=== PATIENT | male | born 1940 | race African-American/Black ===

== ENCOUNTER 2022-09-13 18:40 | Emergency (ER) | payer MEDICAID, OTHER ==
[~2022-09-13] VITALS: Ht 167.6 cm; Wt 87.0 kg
[~2022-09-13 18:40] MED LIST: ALLO100T MT; ATOR40TA70 MT; CHOL400D7 PO; LEVO250T74 PO; LOSA100T32 MT; MULT-1204 MT; TAMS-11 PO
[2022-09-13 19:49] LABS: BASOPHILS % 0.7 % (0.0-2.0); EOSINOPHILS % 1.9 % (0.0-5.0); HEMATOCRIT. 36.7 % (42.0-52.0); HEMOGLOBIN. 11.7 g/dL (14.0-18.0); LYMPHOCYTES % 19.5 % (20.0-50.0); MEAN CORPUSCULAR HEMOGLOBIN 29.1 pg (28.0-32.0); MEAN CORPUSCULAR VOLUME 91.3 fL (80.0-94.0); MEAN PLATELET VOLUME 7.9 fl (7.4-10.4); MONOCYTES % 11.2 % (2.0-8.0); NEUTROPHILS % 66.7 % (40.0-76.0); PLATELET 200 x1000/uL (130-400); RED BLOOD CELL COUNT 4.02 mill/uL (4.7-6.1)
[2022-09-13 20:56] VITALS: BP 129/70
== END 2022-09-13 20:57 | disposition left against medical advice (07) ==
LOC: ER 18:40
DX: R53.1 Weakness (principal); I48.91 Unspecified atrial fibrillation; E87.1 Hypo-osmolality and hyponatremia; D72.819 Decreased white blood cell count, unspecified; D64.9 Anemia, unspecified; I12.0 Hypertensive chronic kidney disease with stage 5 chronic kidney disease or end stage renal disease; E11.22 Type 2 diabetes mellitus with diabetic chronic kidney disease; N18.6 End stage renal disease; Z99.2 Dependence on renal dialysis; Z79.899 Other long term (current) drug therapy
CPT/HCPCS: 36415; 80048; 84484; 85025; 93005; 99284